=== PATIENT | male | born 1990 | race Caucasian/White ===

== ENCOUNTER 2020-05-05 15:44 | Emergency (ER) | payer BC, SELFPAY ==
--- NOTE | 2020-05-05 15:59 | ED.WOUNDLAC ---
HPI - Wound/Laceration General Chief Complaint: Wound/Laceration Stated Complaint: laceration lrft index Source: patient and RN notes reviewed Mode of arrival: ambulatory Limitations: no limitations History of Present Illness HPI narrative: 29-year-old male presents concern for laceration to the second digit of the left hand that he sustained as prior to arrival on a screen door. He does not recall his last tetanus vaccination. He denies decreased strength, sensation, range of motion of the digit. Denies other injury. Extremity Location: Left: hand Related Data Home Medications Medication Instructions Recorded Confirmed No Home Medications 05/05/20 05/05/20 Allergies Allergy/AdvReac Type Severity Reaction Status Date / Time No Known Allergies Allergy Verified 05/05/20 15:55 Review of Systems Review of Systems: Narrative: CONSTITUTIONAL: Denies malaise, chills, sweats, or fever. SKIN: Reports laceration to the palmar aspect of the second digit of left hand MUSCULOSKELETAL: Denies musculoskeletal pain NEUROLOGIC: Denies numbness, weakness All systems reviewed & are unremarkable except as noted in HPI and below PMFSH Social History Social History Gender identity (if verbalized by the patient): Male Comments At time of signature, agree with nursing past medical, surgical, social and family history. There is no relevant family history pertinent to the presenting complaint Exam Narrative: Exam Narrative: GENERAL: Well-appearing, well-nourished, and in no acute distress. HEAD: Normocephalic EYES: PERRLA, conjunctivae clear NECK: Supple. CHEST: Speaks in full sentences. No respiratory distress. HEART: Regular rate and rhythm. Normal and equal peripheral pulses. EXTREMITIES: Second digit of left hand has normal strength and sensation. 5/5 strength with digit flexion, extension. Range of motion normal. No clubbing, cyanosis, or edema noted. No tenderness. Normal digital cascade with flexion of fingers, median, ulnar and radial nerve intact. Normal sensation of each side of finger. Can perform 'okay' sign, 'cross over finger test of index and middle fingers' and 'thumbs up' sign. No scissoring. Normal thumb opposition. Good capillary refill and radial pulse. Distal capillary refill less than 3 seconds. SKIN: Warn, dry, intact, pink. 1.5 cm superficial laceration noted to the palmar aspect of the second digit of left hand at the PIP joint NEURO: Alert and oriented x3. PSYCH: Normal mood and affect Course Course Emergency Course: Discussed with patient wound is superficial, closure with suture is not necessary. Anticipatory guidance given Patient is aware of diagnosis, understands and agrees to treatment plan. Anticipatory guidance given. Patient agrees to follow-up as directed and is aware of reasons to seek care at the emergency department. Portions of this record may have been created with voice recognition software Vital Signs Vital signs: Vital Signs Temperature 98.9 F 05/05/20 16:00 Pulse Rate 96 05/05/20 16:00 Respiratory Rate 16 05/05/20 16:00 Blood Pressure 148/83 H 05/05/20 16:00 Pulse Oximetry 98 05/05/20 16:00 Temperature 98.9 F 05/05/20 16:00 Pulse Rate 96 05/05/20 16:00 Respiratory Rate 16 05/05/20 16:00 Blood Pressure 148/83 H 05/05/20 16:00 Pulse Oximetry 98 05/05/20 16:00 Reviewed. Pt has been instructed to follow up with his primary care provider within the next week regarding his elevated blood pressure today. MDM - Wound/Laceration MDM Narrative Medical decision making narrative: Wound explored for foreign body and irrigation provided with no evidence of FB. Discussed the potential of retained foreign body with the patient and signs/symptoms that should prompt the patient to immediately go to the ED for reevaluation. The laceration was identified to be 1.5 cm in length and located at palmar aspect of the second digit of the left hand at the the PIP joint. T
[2020-05-05 16:00] VITALS: BP 148/83; PULSE 96; RESP 16; TEMP 37.2; O2SAT 98
[2020-05-05] MEDS: TETANUS,DIPHTHERIA,AC PERTUSSIS ADULT (0.5 ML) BOOSTRIX IM (16:14)
== END 2020-05-05 16:21 | disposition home or self-care (01) ==
PROVIDERS: Emergency Provider Nurse Practitioner
DX: S61.211A Laceration without foreign body of left index finger without damage to nail, initial encounter (principal); X58.XXXA Exposure to other specified factors, initial encounter; Z23 Encounter for immunization; F17.200 Nicotine dependence, unspecified, uncomplicated; M47.812 Spondylosis without myelopathy or radiculopathy, cervical region
CPT/HCPCS: 90471; 90715; 99212; G0463

== ENCOUNTER 2021-08-17 19:17 | Emergency (ER) | payer BC, SELFPAY ==
[2021-08-17 19:19] VITALS: BP 144/89; PULSE 122; RESP 20; TEMP 36.4; O2SAT 99
[2021-08-17] MEDS: ONDANSETRON INJ 4 MG/2 ML VIAL IV PUSH (21:32)
[2021-08-17] MEDS: GLUCAGON FOR INJ 1 MG VIAL IV PUSH (21:33)
[2021-08-17 21:35] VITALS: BP 132/77; PULSE 109; RESP 18; O2SAT 100
[2021-08-17] MEDS: NITROGLYCERIN SL 0.4 MG TABLET SUBLINGUAL (21:35)
--- NOTE | 2021-08-17 21:42 | PC.NURSE ---
Pt noted to have swallowed food bolus and is able to drink fluids. Approx 250 ml pepsi drank without difficulty.
[2021-08-17 21:45] VITALS: BP 127/87; PULSE 107; RESP 18; O2SAT 99
--- NOTE | 2021-08-17 21:46 | ED.GENADULT ---
HPI - General Adult General Chief complaint: Skin/Abscess/Foreign Body Stated complaint: food stuck in throat Time Seen by Provider: 08/17/21 21:17 History of Present Illness HPI narrative: 30-year-old male presents emergency room secondary to having meat stuck in his throat. He states he was eating some steak earlier today and felt to get stuck in his throat. He is not been able to swallow since that time. Is been drinking some liquids and stuff like Jell-O. He states it goes down then he spits it up. Nothing seems to go down at all at this point. He has had episodes like this in the past but generally he would either throw it back up or eventually would go back down. That has not happened at this time. He has never seen a GI or had evaluated in the past. Related Data Home Medications Medication Instructions Recorded Confirmed No Home Medications 05/05/20 05/05/20 Allergies Allergy/AdvReac Type Severity Reaction Status Date / Time No Known Allergies Allergy Verified 05/05/20 15:55 Review of Systems Review of Systems: CONSTITUTIONAL: Denies fever, chills, or sweats. EYES: Denies visual changes, redness, or discharge. ENT: Denies rhinorrhea, congestion, sore throat, or otalgia. CARDIOVASCULAR: Denies chest pain, palpitations, or edema. RESPIRATORY: Denies cough or dyspnea. GASTROINTESTINAL: Denies abdominal pain, nausea, vomiting, or diarrhea. Unable to swallow and spitting up his own saliva GENITOURINARY: Denies dysuria or hematuria. SKIN: Denies rash or itching. MUSCULOSKELETAL: Denies back pain, joint pain, or myalgia. NEUROLOGIC: Denies headache, numbness, or weakness. PSYCHIATRIC: Denies anxiety or depression. [facility] Past Medical History Medical History (Updated 08/17/21 @ 21:51 by Hollis Trejo DO) No pertinent past medical history Surgical History Surgical History (Updated 08/17/21 @ 21:51 by Hollis Trejo DO) No pertinent past surgical history Social History Social History Gender identity (if verbalized by the patient): Male Course Vital Signs Vital signs: Vital Signs Temperature 97.6 F 08/17/21 19:19 Pulse Rate 122 H 08/17/21 19:19 Respiratory Rate 20 08/17/21 19:19 Blood Pressure 144/89 H 08/17/21 19:19 Pulse Oximetry 99 08/17/21 19:19 Oxygen Delivery Room Air 08/17/21 19:19 Temperature 97.6 F 08/17/21 19:19 Pulse Rate 107 H 08/17/21 21:45 Respiratory Rate 18 08/17/21 21:45 Blood Pressure 127/87 08/17/21 21:45 Pulse Oximetry 99 08/17/21 21:45 Oxygen Delivery Room Air 08/17/21 19:19 Medical Decision Making MDM Narrative Medical decision making narrative: Patient IV established and was given glucagon 1 mg, Zofran 4 mg IV, and 1 sublingual nitro. Afterwards was given some coke to drink and was able to jump up and down and felt the meat bolus going back into his stomach. Afterwards he was able to swallow without any difficulty. Vital Signs Vital Signs: Vital Signs Temperature 97.6 F 08/17/21 19:19 Pulse Rate 122 H 08/17/21 19:19 Respiratory Rate 20 08/17/21 19:19 Blood Pressure 144/89 H 08/17/21 19:19 Pulse Oximetry 99 08/17/21 19:19 Oxygen Delivery Room Air 08/17/21 19:19 Temperature 97.6 F 08/17/21 19:19 Pulse Rate 107 H 08/17/21 21:45 Respiratory Rate 18 08/17/21 21:45 Blood Pressure 127/87 08/17/21 21:45 Pulse Oximetry 99 08/17/21 21:45 Oxygen Delivery Room Air 08/17/21 19:19 Discharge Plan Discharge Clinical Impression: Esophageal obstruction due to food impaction Patient Disposition: Home, Self-Care Condition: Stable Instructions: Esophageal Foreign Body (ED) Additional Instructions: Make sure you chew your food very well. Eat small bite sizes. You need to follow-up with a finishing supervisor plastic sheets. Return if worse Prescriptions: No Action No Home Medications Follow-up/Referrals: Hollis Brizuela MD [Physician] - (Call for a follow-up amor
== END 2021-08-17 21:52 | disposition home or self-care (01) ==
PROVIDERS: Emergency Provider Emergency Medicine
DX: T18.128A Food in esophagus causing other injury, initial encounter (principal)
CPT/HCPCS: 96372; 96374; 99284; A9270; J1610; J2405

== ENCOUNTER 2022-10-21 20:01 | Emergency (ER) | payer OTHER, SELFPAY ==
--- NOTE | 2022-10-21 20:04 | ED.WOUNDLAC ---
HPI - Wound/Laceration General Chief Complaint: Wound/Laceration Stated Complaint: Left Hand Laceration Time Seen by Provider: 10/21/22 20:03 Source: patient Mode of arrival: ambulatory Limitations: no limitations History of Present Illness HPI narrative: Harsh is a 31-year-old male patient presenting to the clinic today with complaints of a laceration to his left hand and wrist. Reports prior to [employer] glass shattered and he cut his hand. Tetanus is up today. Has a 1 cm cut to the left dorsal radial wrist and the 1 cm cut to the proximal left thumb base. Related Data Home Medications Medication Instructions Recorded Confirmed omeprazole 20 mg capsule,delayed mg 10/21/22 release Allergies Allergy/AdvReac Type Severity Reaction Status Date / Time No Known Allergies Allergy Verified 10/21/22 20:08 Review of Systems Review of Systems: Pertinent positives per HPI. Patient denies any fever, chills, rash, headache, visual changes, dizziness, cough, runny nose, sore throat, shortness of breath, chest pain, palpitations, nausea, vomiting, diarrhea, constipation, abdominal pain, or any urinary issues. PMFSH Past Medical History Medical History No pertinent past medical history Surgical History Surgical History No pertinent past surgical history Social History Social History Gender identity (if verbalized by the patient): Male Comments At the time of my signature, I reviewed and agree with the nursing past medical, surgical, social, and family history. There is no relevant family history pertinent to the patient complaint. Exam Narrative: General: Well-developed, well nourished, in no apparent distress Head: Normocephalic, atraumatic. Cardio: Regular rate and rhythm, s1 and s2 normal, no murmur appreciated. Resp: Clear to auscultation bilaterally, no rhonchi, rales, wheezing or rubs. Integumentary: Britton, warm, and dry, intact without lesion, 2 cm open laceration to the left proximal thumb base and the left dorsal radial wrist Course Course Emergency Course: Portions of this record may have been created with voice recognition software. Level of Care: Express Care Visit Vital Signs Vital signs: Vital signs reviewed Procedures Laceration Laceration 1: Date: 10/21/22 Site: hand (Left hand and wrist) Side (If applicable): left Size (cm): 1 Description: linear Depth: simple, single layer Local Anesthetic: lidocaine 1% Amount of anesthesia used (mL): 2 Pre-repair: wound explored and irrigated ====== Skin Level ====== Skin layer closed with: nylon Size (cm): 4-0 Number of sutures: 5 Technique: simple, interrupted ====== Subcutaneous Layer ====== ====== Muscle Layer ====== ====== Tendon Layer ====== Dressing: Verbal consent obtained for laceration repair. Risk and benefits explained and patient voiced understanding. Wound areas were cleansed with Betadine and a 25 gauge needle was then used to instill (2) ml of 1% lidocaine without epi into the wound edges. Area was prepped and draped using sterile technique. A 4-0 suture on a p needle was used to place (3) interrupted sutures to the laceration to the base of the left thumb and to interrupted sutures to the left dorsal radial wrist bringing the wound edges together- well approximated. Patient tolerated procedure well. Sterile dressing applied. Bleeding was controlled. MDM - Wound/Laceration MDM Narrative Medical decision making narrative: At the time of visit patient is resting comfortably on the exam table. Laceration repair was performed in the clinic today using a 4-0 suture. A total of 5 interrupted sutures were used to close wound
[2022-10-21 20:10] VITALS: BP 149/88; PULSE 92; RESP 16; TEMP 37.2; O2SAT 98
== END 2022-10-21 20:32 | disposition home or self-care (01) ==
PROVIDERS: Emergency Provider Nurse Practitioner Family
DX: S61.412A Laceration without foreign body of left hand, initial encounter (principal); S61.512A Laceration without foreign body of left wrist, initial encounter; W25.XXXA Contact with sharp glass, initial encounter
CPT/HCPCS: 12001; 99212; G0463

== ENCOUNTER 2023-10-17 08:32 | Emergency (ER) | payer OTHER, SELFPAY ==
[2023-10-17 08:43] VITALS: BP 131/77; PULSE 101; RESP 16; TEMP 37; O2SAT 100
--- NOTE | 2023-10-17 09:05 | ED.URI ---
HPI - URI/Sore Throat General Chief Complaint: Upper Respiratory Infection Stated Complaint: Sinus Time Seen by Provider: 10/17/23 09:05 Source: patient and RN notes reviewed Mode of arrival: ambulatory Limitations: no limitations History of Present Illness HPI Narrative: 32-year-old male presented for complaint of nasal congestion, sinus pressure, bilateral ear pressure, and cough for 2 weeks. Endorses a few days of improvement. Denies shortness of breath, wheezing nausea vomiting, diarrhea, fevers or chills. He has not taken anything for symptoms. Patient smokes 1 ppd. MD elicited complaint: cough Related Data Home Medications Medication Instructions Recorded Confirmed sertraline 25 mg tablet 25 mg PO DAILY 10/17/23 10/17/23 Allergies Allergy/AdvReac Type Severity Reaction Status Date / Time No Known Allergies Allergy Verified 10/17/23 09:08 Review of Systems Review of Systems: CONSTITUTIONAL: Denies malaise, chills, sweats, fever EYES: Denies visual changes, redness, or discharge ENT: Reports rhinorrhea, congestion, sinus pain, otalgia, denies sore throat CARDIOVASCULAR: Denies chest pain, palpitations, edema RESPIRATORY: Reports cough, post nasal drainage. Denies dyspnea GASTROINTESTINAL: Denies abdominal pain, nausea, vomiting, diarrhea SKIN: Denies rash MUSCULOSKELETAL: denies myalgia PMFSH Past Medical History Medical History No pertinent past medical history Surgical History Surgical History No pertinent past surgical history Social History Social History (Updated 10/17/23 @ 09:18 by Senia Bacon APRN) Smoking packs per day: 1 Smoking cigarettes per day: 20.0 Smoking status: Current every day smoker Tobacco type: cigarettes Substance use: current Substance use type: marijuana Gender identity (if verbalized by the patient): Male Exam Narrative: GENERAL: well-appearing EYES: conjunctivae clear ENT: Mucous membranes moist. Nasal drainage. TMs pearly goetz with dull light reflex bilaterally, mild clear effusion to right TM; no tragal tenderness. Oropharynx not erythematous without lesions or exudate, no drooling, no hoarseness, no trismus, uvula midline. No tripod positioning, muffled voice, soft palate or pharyngeal wall bulging CHEST: Right lower lobe wheeze noted. No respiratory distress, speaks in full sentences. HEART: Regular rate and rhythm. SKIN: Warm, dry NEURO: Alert and oriented x3. PSYCH: flat affect Course Course Emergency Course: Patient is aware of diagnosis, understands and agrees to treatment plan. Anticipatory guidance given. Patient agrees to follow-up as directed and is aware of reasons to seek care at the emergency department. Portions of this record may have been created with voice recognition software Level of Care: Express Care Visit Vital Signs Vital signs: Vital Signs Temperature 98.6 F 10/17/23 08:43 Pulse Rate 101 H 10/17/23 08:43 Respiratory Rate 16 10/17/23 08:43 Blood Pressure 131/77 10/17/23 08:43 Pulse Oximetry 100 10/17/23 08:43 Oxygen Delivery Room Air 10/17/23 08:43 Temperature 98.6 F 10/17/23 08:43 Pulse Rate 101 H 10/17/23 08:43 Respiratory Rate 16 10/17/23 08:43 Blood Pressure 131/77 10/17/23 08:43 Pulse Oximetry 100 10/17/23 08:43 Oxygen Delivery Room Air 10/17/23 08:43 reviewed MDM - URI/Sore Throat MDM Narrative Medical decision making narrative: Discussed physical exam findings. Advised supportive measures and signs/symptoms to go to the ER. Pt is appropriate for outpt treatment and f/u. Differential Diagnosis Differential diagnosis: Likely upper respiratory infection, sinusitis and viral infection Discharge Plan Discharge Clinical Impression: Sinusitis Qualifiers: Sinusitis location: unspecified location Chronicity: acute Recurrence: non
--- NOTE | 2023-10-17 09:15 | PC.NURSE ---
PT REPORTS IS NOT TAKING HIS RX FOR SERTALINE. WAS STARTED ON THIS MEDICINE FOR DEPRESSION. PT DENIES SUICIDAL IDEATIONS. MAKI DAHL RN
== END 2023-10-17 09:18 | disposition home or self-care (01) ==
PROVIDERS: Emergency Provider Nurse Practitioner Family; PCP Nurse Practitioner Family
DX: J01.90 Acute sinusitis, unspecified (principal); F17.210 Nicotine dependence, cigarettes, uncomplicated; F12.90 Cannabis use, unspecified, uncomplicated
CPT/HCPCS: 99213; G0463